=== PATIENT | female | born 1995 | race Caucasian/White ===

== ENCOUNTER 2016-05-13 02:51 | Emergency (ER) | payer BC, OTHER ==
[~2016-05-13] VITALS: Ht 162.6 cm; Wt 63.5 kg
--- OUTSIDE RECORDS SUMMARY | 2016-05-13 03:00 | XMS REPORT | Continuity of Care Document ---
Author Author [facility] Organization [facility] Address Unknown Phone Unavailable Care Team Providers Care Licensed Audiologist Name Role Phone NO, LOCAL PHYSICIAN PCP Unavailable Insurance Providers Payer Name Policy Number Subscriber Name Relationship [facility] [id number] Roc Adames 18 Self / Same As Patient Advance Directives Directive Response Recorded Date/Time Advance Directives No 11/12/14 10:41am Resuscitation Status Full Code 11/12/14 10:41am Problems Medical Problems Problem Onset Date Status Concussion without loss of consciousness Unknown Active Right sided weakness Unknown Active Facial contusion Unknown Active Concussion without loss of consciousness Unknown Active Medications No known medications. Social History Social History Problem Response Recorded Date/Time Alcohol Use Occasionally Uses 11/12/2014 10:41am Recreational Drug Use No 11/12/2014 10:41am Recent Foreign Travel No 11/12/2014 10:41am Recent Infectious Disease Exposure No 11/12/2014 10:41am Smoking Status Never a Smoker 11/12/2014 10:41am Query Response Start Date Stop Date Smoking Status Never a Smoker Hospital Discharge Instructions No hospital discharge instructions. Plan of Care No plan of care. Functional Status Query Response Date Recorded Patient Orientation Person Place Time Situation November 12, 2014 10:41am Comprehension Ability Understands Concepts November 12, 2014 10:41am Allergies, Adverse Reactions, Alerts Allergen Type Severity Reaction Status Last Updated No Known Drug Allergies Active 11/12/14 Immunizations No immunization records. Vital Signs Acute Vital Signs Vital Response Date/Time Temperature (Fahrenheit) 98.6 degrees F (97.6 - 99.5) Temperature (Calculated Celsius) 37.47026 degrees C (36.4 - 37.5) Temperature Source Temporal Pulse Rate (adult) 100 bpm (60 - 90) Respiratory Rate 18 bpm (12 - 24) O2 Sat by Pulse Oximetry 98 % (88 - 100) Blood Pressure 131/84 mm Hg Blood Pressure Mean 100 mm Hg Pain Pain Intensity 9 Height (Feet) 5 feet Height (Inches) 4 inches Height (Calculated Centimeters) 162.249169 cm Weight (Pounds) 140 pounds Weight (Calculated Kilograms) 63.906391 kilograms Calculated BMI 24.03 Results Laboratory Results Test Name Result Units Flags Reference Collection Date/Time Result Date/ Time Comments White Blood Count 10.9 10^3/uL 4.3-11.0 11/12/2014 12:35pm 11/12/2014 12:41pm Red Blood Count 4.51 10^6/uL 4.35-5.85 11/12/2014 12:35pm 11/12/2014 12 :41pm Hemoglobin 15.2 G/DL 11.5-16.0 11/12/2014 12:35pm 11/12/2014 12:41pm Hematocrit 44 % 35-52 11/12/2014 12:35pm 11/12/2014 12:41pm Mean Corpuscular Volume 97 FL 80-99 11/12/2014 12:35pm 11/12/2014 12: 41pm Mean Corpuscular Hemoglobin 34 PG 25-34 11/12/2014 12:35pm 11/12/2014 12:41pm Mean Corpuscular Hemoglobin Concent 35 G/DL 32-36 11/12/2014 12:35pm 12:41pm Red Cell Distribution Width 12.3 % 10.0-14.5 11/12/2014 12:35pm 2014 12:41pm Platelet Count 272 10^3/uL 130-400 11/12/2014 12:35pm 11/12/2014 12: 41pm Mean Platelet Volume 10.7 FL H 7.4-10.4 11/12/2014 12:35pm 11/12/2014 12: 41pm Neutrophils (%) (Auto) 79 % H 42-75 11/12/2014 12:35pm 11/12/2014 12: 41pm Lymphocytes (%) (Auto) 14 % 12-44 11/12/2014 12:35pm 11/12/2014 12: 41pm Monocytes (%) (Auto) 6 % 0-12 11/12/2014 12:35pm 11/12/2014 12:41pm Eosinophils (%) (Auto) 0 % 0-10 11/12/2014 12:35pm 11/12/2014 12:41pm Basophils (%) (Auto) 0 % 0-10 11/12/2014 12:35pm 11/12/2014 12:41pm Neutrophils # (Auto) 8.7 X 10^3 H 1.8-7.8 11/12/2014 12:35pm 11/12/2014 12:41pm Lymphocytes # (Auto) 1.5 X 10^3 1.0-4.0 11/12/2014 12:35pm 11/12/2014 12:41pm Monocytes # (Auto) 0.7 X 10^3 0.0-1.0 11/12/2014 12:35pm 11/12/2014 12: 41pm Eosinophils # (Auto) 0.0 10^3/uL 0.0-0.3 11/12/2014 12:35pm 11/12/2014 12:41pm Basophils # (Auto) 0.0 10^3/uL 0.0-0.1 11/12/2014 12:35pm 11/12/2014 12 :41pm Prothrombin Time 12.7 SEC 12.2-14.7 11/12/2014 12:35pm 11/12/2014 12: 51pm INR Comment 1.0 0.8-1.4 11/12/2014 12:35pm 11/12/2014 12:51pm INTERPRETIVE DATA SUGGESTED THERAPEUTIC RANGE FOR INR'S: VENOUS THROMBOSIS, PULMONARY EMBOLISM, OR PREVENTION OF SYSTEMIC EMBOLISM (EG. IN ATRIAL FIBRILLATION): 2.0 - 3.0 MECHANICAL PROSTHETIC HEART VALVES: 2.5 - 3.5* *NOTE: INR'S UP TO 4.5 MAY BE NECESSARY IN SELECTED GROUPS OF HIGH RISK PATIENTS. [employer] CONSENSUS CONFERENCE ON ANTITHROMBOTIC THERAPY (2000). Activated Partial Thromboplast Time 28 SEC 24-35 11/12/2014 12:35pm 12:51pm D-Dimer 0.37 UG/ML 0.00-0.49 11/12/2014 12:35pm 11/12/2014 12:51pm Urine Color YELLOW 11/12/2014 2:05pm 11/12/2014 2:33pm Urine Clarity CLEAR 11/12/2014 2:05pm 11/12/2014 2:33pm Urine pH 7 5-9 11/12/2014 2:05pm 11/12/2014 2:33pm Urine Specific [place] 1.005 * 1.016-1.022 11/12/2014 2:05pm 2014 2:33pm Urine Protein NEGATIVE NEGATIVE 11/12/2014 2:05pm 11/12/2014 2:33pm Urine Glucose (UA) NEGATIVE NEGATIVE 11/12/2014 2:05pm 11/12/2014 2: 33pm Urine RBC (Auto) NEGATIVE NEGATIVE 11/12/2014 2:05pm 11/12/2014 2: 33pm Urine Ketones 1+ * NEGATIVE 11/12/2014 2:05pm 11/12/2014 2:33pm Urine Nitrite NEGATIVE NEGATIVE 11/12/2014 2:05pm 11/12/2014 2:33pm Urine Bilirubin NEGATIVE NEGATIVE 11/12/2014 2:05pm 11/12/2014 2: 33pm Urine Urobilinogen NORMAL MG/DL NORMAL 11/12/2014 2:05pm 11/12/2014 2: 33pm Urine Leukocyte Esterase NEGATIVE NEGATIVE 11/12/2014 2:05pm 2014 2:33pm Urine RBC NONE /HPF 11/12/2014 2:05pm 11/12/2014 2:33pm Urine WBC NONE /HPF 11/12/2014 2:05pm 11/12/2014 2:33pm Urine Bacteria TRACE /HPF 11/12/2014 2:05pm 11/12/2014 2:33pm Urine Squamous Epithelial Cells 5-10 /HPF 11/12/2014 2:05pm 2014 2:33pm Urine Crystals NONE /LPF 11/12/2014 2:05pm 11/12/2014 2:33pm Urine Casts NONE /LPF 11/12/2014 2:05pm 11/12/2014 2:33pm Urine Mucus NEGATIVE /LPF 11/12/2014 2:05pm 11/12/2014 2:33pm Urine Culture Indicated NO 11/12/2014 2:05pm 11/12/2014 2:33pm Sodium Level 137 MMOL/L 135-145 11/12/2014 12:35pm 11/12/2014 12:57pm Potassium Level 4.4 MMOL/L 3.6-5.0 11/12/2014 12:35pm 11/12/2014 12: 57pm Chloride Level 108 MMOL/L H 98-107 11/12/2014 12:35pm 11/12/2014 12:57pm Carbon Dioxide Level 23 MMOL/L -11/12/2014 12:35pm 11/12/2014 12: 57pm Anion Gap 6 MMOL/L 5-14 11/12/2014 12:35pm 11/12/2014 12:57pm Blood Urea Nitrogen 12 MG/DL 11-0811/12/2014 12:35pm 11/12/2014 12: 57pm Creatinine 0.80 MG/DL 0.60-1.30 11/12/2014 12:35pm 11/12/2014 12:57pm BUN/Creatinine Ratio 15 11/12/2014 12:35pm 11/12/2014 12:57pm Estimat Glomerular Filtration Rate > 60 11/12/2014 12:35pm 2014 12:57pm GFR INTERPRETIVE DATA UNITS FOR ESTIMATED GFR (eGFR): mL/min/1.73 M2 REFERENCE RANGE FOR ESTIMATED GFR (eGFR) eGFR NORMAL eGFR >60 MODERATELY DECREASED eGFR 30-59 SEVERLY DECREASED eGFR 15-29 KIDNEY FAILURE <15 (OR DIALYSIS) Glucose Level 96 MG/DL 70-105 11/12/2014 12:35pm 11/12/2014 12:57pm Calcium Level 10.0 MG/DL 8.5-10.1 11/12/2014 12:35pm 11/12/2014 12: 57pm Magnesium Level 2.3 MG/DL 1.8-2.4 11/12/2014 12:35pm 11/12/2014 12: 57pm Total Bilirubin 0.8 MG/DL 0.1-1.0 11/12/2014 12:35pm 11/12/2014 12: 57pm Alkaline Phosphatase 72 U/L 40-136 11/12/2014 12:35pm 11/12/2014 12: 57pm Aspartate Amino Transf (AST/SGOT) 18 U/L 5-34 11/12/2014 12:35pm 2014 12:57pm Alanine Aminotransferase (ALT/SGPT) 16 U/L 0-55 11/12/2014 12:35pm 12:57pm Troponin I < 0.30 NG/ML <0.30 11/12/2014 12:35pm 11/12/2014 1:03pm Total Protein 7.2 G/DL 6.4-8.2 11/12/2014 12:35pm 11/12/2014 12:57pm Albumin 4.5 G/DL 3.2-4.5 11/12/2014 12:35pm 11/12/2014 12:57pm Procedures Procedure Status Date Provider(s) Tracing only of electrocardiogram completed 11/12/14 LAN DUONG MD Encounters Encounter Location Date/Time Departed Emergency Room [facility] 11/12/14 10:44am Recent Diagnosis
[2016-05-13] MEDS ORDERED: NS IV 1000 ML 1,000 ML IV ONE (03:02)
[2016-05-13 03:14] LABS: BASOPHILS % (AUTO) 0 % (0-10); BILIRUBIN,URINE NEGATIVE (NEGATIVE); EOSINOPHILS # (AUTO) 0.2 10^3/uL (0.0-0.3); EOSINOPHILS % (AUTO) 2 % (0-10); KETONES,URINE NEGATIVE (NEGATIVE); LEUKOCYTE ESTERASE ,URINE NEGATIVE (NEGATIVE); LYMPHOCYTES # (AUTO) 4.9 X 10^3 (1.0-4.0); LYMPHOCYTES % (AUTO) 35 % (12-44); MEAN CORPUSCULAR HEMOGLOBIN 33 PG (25-34); MEAN CORPUSCULAR HGB CONC 36 G/DL (32-36); MEAN CORPUSCULAR VOLUME 93 FL (80-99); MEAN PLATELET VOLUME 10.8 FL (7.4-10.4); MONOCYTES # (AUTO) 0.9 X 10^3 (0.0-1.0); MONOCYTES % (AUTO) 7 % (0-12); NEUTROPHILS # (AUTO) 7.7 X 10^3 (1.8-7.8); NEUTROPHILS % (AUTO) 56 % (42-75); NITRITE,URINE NEGATIVE (NEGATIVE); PH,URINE 6 (5-9); PLATELET COUNT 369 10^3/uL (130-400); PROTEIN,URINE NEGATIVE (NEGATIVE); RED BLOOD COUNT 4.31 10^6/uL (4.35-5.85); RED CELL DISTRIBUTION WIDTH 12.2 % (10.0-14.5); UROBILINOGEN,URINE NORMAL (NORMAL); WHITE BLOOD COUNT 13.7 10^3/uL (4.3-11.0)
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
[2016-05-13 03:22] LABS: SQUAMOUS EPITHELIAL CELL,UR 0-2 /HPF
[2016-05-13 03:29] LABS: ALANINE AMINOTRANSFERASE 11 U/L (0-55); ALBUMIN 4.8 G/DL (3.2-4.5); ALCOHOL 188 MG/DL (<10); ANION GAP 15 MMOL/L (5-14); ASPARTATE AMINO TRANSFERASE 12 U/L (5-34); BILIRUBIN,TOTAL 0.2 MG/DL (0.1-1.0); BLOOD UREA NITROGEN 9 MG/DL (7-18); BUN/CREATININE RATIO 12; CALCIUM 9.6 MG/DL (8.5-10.1); CARBON DIOXIDE 19 MMOL/L (21-32); CHLORIDE 108 MMOL/L (98-107); CREATININE SERUM 0.78 MG/DL (0.60-1.30); GFR ESTIMATED > 60; GLUCOSE 97 MG/DL (70-105); POTASSIUM 3.8 MMOL/L (3.6-5.0); SALICYLATE < 5.0 MG/DL (5.0-20.0); SODIUM 142 MMOL/L (135-145); TOTAL PROTEIN 7.6 G/DL (6.4-8.2)
[2016-05-13] MEDS ORDERED: ONDANSETRON 4 MG/2 ML (SDV) Z0FRAN IVP ONE (03:30)
[2016-05-13 03:32] LABS: ACETAMINOPHEN < 10 UG/ML (10-30)
[2016-05-13] MEDS ORDERED: KETOROLAC 30 MG/ML VIAL IVP ONE (04:00)
[2016-05-13 04:31] VITALS: BP 113/69
--- NOTE | 2016-05-13 07:56 | Diagnostic Imaging Report ---
Portable upright radiograph of the chest. INDICATION: Altered mental status. FINDINGS: The lungs are clear. The heart size is normal. No effusion or pneumothorax. The mediastinum and julien appear unremarkable. IMPRESSION: Unremarkable exam. Dictated by: Dictated on workstation # [id number]
== END 2016-05-13 04:30 | disposition home or self-care (01) ==
LOC: EDUNIT# 02:51 → ER 02:56
DX: F10.129 Alcohol abuse with intoxication, unspecified (principal); Y90.6 Blood alcohol level of 120-199 mg/100 ml; R00.0 Tachycardia, unspecified
CPT/HCPCS: 36415; 71010; 80053; 80306; 80320; 80329; 81000; 82962; 84703; 85025; 93005; 93041; 96374; 96375